=== PATIENT | female | born 1995 | race Caucasian/White ===

== ENCOUNTER 2025-02-01 16:55 | Emergency (ER) | payer MEDICAID ==
[~2025-02-01] VITALS: Ht 165.1 cm; Wt 55.0 kg
[2025-02-01 17:01] VITALS: O2SAT 100
[2025-02-01 18:51] VITALS: BP 99/73; PULSE 97; RESP 18; TEMP 37.1; O2SAT 100
== END 2025-02-01 18:53 | disposition home or self-care (01) ==
LOC: ER 16:55
DX: Z59.01 Sheltered homelessness (principal)
CPT/HCPCS: 99283